=== PATIENT | female | born 1990 | race Caucasian/White ===

== ENCOUNTER 2018-12-31 23:40 | Outpatient (CLI) | payer BC ==
[2019-01-01 03:24] VITALS: BP 143/71; PULSE 113; RESP 18; TEMP 98.2
--- NOTE | 2019-01-01 07:45 | P.MSEPDOC ---
Presenting Problems - Arrival Data Date of Arrival on Unit: 12/31/18 Time of Arrival on Unit: 23:31 Mode of Transport: Ambulatory - Complaint OB-Reason for Admission/Chief Complaint: Rule Out SROM Comment: Clear fluid around 2129 Medical History - Information : 1 Para: 0 Term: 0 : 0 Abortions: Spontaneous or Elective: 0 Number of Living Children: 0 - Gestational Age Gestational Age by ANTONINO (wks/days): 34 Weeks and 1 Days Review of Systems - Review of Systems Constitutional: No problems Breast: No problems ENT: No problems Cardiovascular: No problems Respiratory: No problems Gastrointestinal: No problems Genitourinary: No problems Musculoskeletal: No problems Neurological: No problems Skin: No problems Vital Signs - Temperature Temperature: 98.2 F Temperature Source: Tympanic - Pulse Right Brachial Pulse Rate: 113 Pulse Assessment Method: Automatic Cuff - Respirations Respiratory Rate: 18 Oxygen Delivery Method: Room Air O2 Sat by Pulse Oximetry: 98 - Blood Pressure Right Arm Blood Pressure: 143/71 Blood Pressure Mean: 95 Blood Pressure Source: Automatic Cuff Medical Screen Scoring (Pre) - Cervical Exam Dilation: 0 cm = 0 Effacement: Exam Deferred Membranes: Intact - Uterine Contractions Frequency: > 5 minutes apart = 1 Duration: N/A Intensity: N/A - Maternal Vital Signs Maternal Temperature: N/A Signs of Preeclampsia: N/A Maternal Respirations: N/A - Maternal Trauma Maternal Trauma: N/A - Assessment - Baby A Baseline FHR: 135 Heart Rate - NICHD Category: Category I (Normal) = 0 NST: Reactive Position: N/A Station: N/A - Total Score - Baby A Total Score - Baby A: 1 - Total Score - Baby B Total Score - Baby B: 1 - Total Score - Baby C Total Score - Baby C: 1 - Level of Risk - Baby A Level of Risk - Baby A: Low (0-5) - Level of Risk - Baby B Level of Risk - Baby B: Low (0-5) - Level of Risk - Baby C Level of Risk - Baby C: Low (0-5) Physician Notification (Pre) - Physician Notified Physician Notified Date: 01/01/19 Physician Notified Time: 00:18 Spoke With: Theresa New Order Received: Yes - Notification Comment Comment: Amnisure negative, d.c pt home follow up as planned Disposition - Disposition OB Disposition: Discharge to home, Written follow up instructions reviewed Discharge Date: 01/01/19 Discharge Time: 00:30 I agree with the RN Medical Screening Exam: Yes Risk & Benefit of care provided described in d/c instruction: Yes Diagnosis: FALSE LABOR AT OR AFTER 37 COMPLETED WEEKS OF GESTATION
== END 2019-01-01 00:31 | disposition home or self-care (01) ==
LOC: FBPOP 23:40
PROVIDERS: ATTEND Obstetrics & Gynecology
DX: O47.1 False labor at or after 37 completed weeks of gestation (principal); Z3A.34 34 weeks gestation of pregnancy
CPT/HCPCS: 59025; 84112; 99213

== ENCOUNTER 2019-01-27 11:50 | Outpatient (CLI) | payer BC ==
[2019-01-27 12:33] LABS: Appearance,Urine Clear (Clear); Bacteria,Urine Many /hpf; Bilirubin,Urine Negative (Negative); Blood,Urine Small (Negative); Color,Urine Colorless; Glucose,Urine (UA) Negative (Negative); Ketones,Urine Negative (Negative); Leukocyte Esterase,Urine Trace (Negative); Nitrite,Urine Negative (Negative); Protein,Urine Negative (Negative); RBC,Urine 2 /hpf (0-5); Specific Gravity,Urine 1.003 (1.001-1.035); Squamous Epithelial Cell,Urine 3 /hpf (0-4); Urobilinogen,Urine <2.0 mg/dL (<2.0); WBC,Urine 8 /hpf (0-5)
[2019-01-27 12:43] LABS: Creatinine,Urine Random 28.7 mg/dL
[2019-01-27 13:03] LABS: Basophils % (A) 0 %; Eosinophils # (A) 0.1 k/uL (0-0.7); Eosinophils % (A) 1 %; HCT 30.8 % (34.0-46.0); HGB 10.1 gm/dL (11.4-16.0); Lymphocytes % (A) 22 %; MCH 28.1 pg (25.0-35.0); MCHC 32.8 g/dL (31.0-37.0); MCV 85.8 fL (80.0-100.0); Mean Platelet Volume 7.7; Monocytes # (A) 0.3 k/uL (0-1.0); Monocytes % (A) 3 %; Neutrophils # (A) 6.8 k/uL (1.3-7.7); Neutrophils % (A) 72 %; Platelet Count 240 k/uL (150-450); RBC 3.59 m/uL (3.80-5.40); RDW 13.3 % (11.5-15.5); WBC 9.4 k/uL (3.8-10.6)
[2019-01-27 13:16] LABS: ALT 15 U/L (9-52); AST 16 U/L (14-36); African American GFR (CKD) >90 (>60 ml/min/1.73 sqM); Blood Urea Nitrogen 6 mg/dL (7-17); LDH 356 U/L (313-618); Uric Acid 5.8 mg/dL (3.7-7.4)
--- NOTE | 2019-02-17 08:10 | P.MSEPDOC ---
Presenting Problems - Arrival Data Date of Arrival on Unit: 01/27/19 Time of Arrival on Unit: 11:50 Mode of Transport: Ambulatory - Complaint OB-Reason for Admission/Chief Complaint: PIH, Observation/Evaluation Comment: pt came with orders from office for PIH eval Medical History - Information : 1 Para: 0 Term: 0 : 0 Abortions: Spontaneous or Elective: 0 Number of Living Children: 0 - Gestational Age Gestational Age by ANTONINO (wks/days): 37 Weeks and 6 Days - History Complications: Breech Comment: elevated bp x1 in office Review of Systems - Review of Systems Constitutional: No problems Breast: No problems ENT: No problems Cardiovascular: No problems Respiratory: No problems Gastrointestinal: No problems Genitourinary: No problems Musculoskeletal: No problems Neurological: No problems Skin: No problems Disposition - Disposition OB Disposition: Discharge to home Discharge Date: 01/27/19 Discharge Time: 13:35 I agree with the RN Medical Screening Exam: Yes Risk & Benefit of care provided described in d/c instruction: Yes Diagnosis: GESTATIONAL HTN W/O SIGNIFICANT PROTEINURIA, THIRD TRIMESTER
== END 2019-01-27 13:35 | disposition home or self-care (01) ==
LOC: FBPOP 11:50
PROVIDERS: ATTEND Obstetrics & Gynecology
DX: O13.3 Gestational [pregnancy-induced] hypertension without significant proteinuria, third trimester (principal); Z3A.37 37 weeks gestation of pregnancy
CPT/HCPCS: 59025; 81001; 82565; 82570; 83615; 84156; 84450; 84460; 84520; 84550; 85025; 87086; 99213

== ENCOUNTER 2019-02-05 09:57 | Inpatient (IN) | payer BC ==
--- NOTE | 2019-02-05 08:08 | P.HPOB ---
History of Present Illness H&P Date: 02/05/19 Chief Complaint: Breech 28 year old presents for primary low transverse for breech presentation. Review of Systems All systems: negative Constitutional: Denies chills, Denies fever Eyes: denies blurred vision, denies pain Ears, nose, mouth and throat: Denies headache, Denies sore throat Cardiovascular: Denies chest pain, Denies shortness of breath Respiratory: Denies cough Gastrointestinal: Denies abdominal pain, Denies diarrhea, Denies nausea, Denies vomiting Genitourinary: Denies dysuria, Denies hematuria Musculoskeletal: Denies myalgias Integumentary: Denies pruritus, Denies rash Neurological: Denies numbness, Denies weakness Psychiatric: Denies anxiety, Denies depression Endocrine: Denies fatigue, Denies weight change Past Medical History Additional Past Medical History / Comment(s): Obstetric history: This is her first and she has had care with me since the first trimester. A+, abs neg, Rub Imm, RPR Nr, Hep B neg. For the last few weeks we have been monitoring her swelling and her BPs. They have been up and down but labs were normal. History of Any Multi-Drug Resistant Organisms: None Reported Smoking Status: Never smoker Medications and Allergies Home Medications Medication Instructions Recorded Confirmed Type Pnv No.95/Ferrous Fum/Folic AC 1 tab PO DAILY 01/27/19 01/27/19 History [ Multivitamin Tablet] Allergies Allergy/AdvReac Type Severity Reaction Status Date / Time No Known Allergies Allergy Verified 01/27/19 12:13 Exam Osteopathic Statement: *. No significant issues noted on an osteopathic structural exam other than those noted in the History and Physical/Consult. Heart: RRR Lungs: CTAB Abdomen: soft, nontender Extremeties: neg shonna's Assessment and Plan (1) Breech presentation Status: Acute Code(s): O32.1XX0 - MATERNAL CARE FOR BREECH PRESENTATION, UNSP SNOMED Code(s): 3722580 Plan: 1. primary low transverse
[2019-02-05] MEDS ORDERED: CITRIC ACID-SODIUM CITRATE 15 ML CUP PO ONE (10:36)
[2019-02-05] MEDS: LACTATED RINGERS 1,000 ML IV SCH ×2 (11:24→11:53)
[2019-02-05 11:28] LABS: Basophils % (A) 0 %; Eosinophils # (A) 0.1 k/uL (0-0.7); Eosinophils % (A) 1 %; HCT 30.5 % (34.0-46.0); HGB 9.8 gm/dL (11.4-16.0); Lymphocytes # (A) 1.7 k/uL (1.0-4.8); Lymphocytes % (A) 22 %; MCH 27.9 pg (25.0-35.0); MCV 87.2 fL (80.0-100.0); Monocytes # (A) 0.2 k/uL (0-1.0); Monocytes % (A) 3 %; Neutrophils # (A) 5.3 k/uL (1.3-7.7); Neutrophils % (A) 71 %; Platelet Count 249 k/uL (150-450); RDW 14.2 % (11.5-15.5); WBC 7.4 k/uL (3.8-10.6)
[2019-02-05 11:49] VITALS: BMI 39.9
[2019-02-05] MEDS ORDERED: MORPHINE SULFATE (PF) 0.3 MG/0.3 ML SYR ONE (12:02)
[2019-02-05] MEDS ORDERED: KETOROLAC 30 MG/ML 1 ML VIAL ONE (12:02)
[2019-02-05] MEDS ORDERED: OXYTOCIN 10 UNIT/ML 1 ML VIAL ONE (12:02)
[2019-02-05] MEDS ORDERED: ONDANSETRON 4 MG/2 ML VIAL ONE (12:02)
[2019-02-05] MEDS ORDERED: NALBUPHINE 10 MG/ML (1 ML AMP) ONE (12:02)
[2019-02-05] MEDS ORDERED: PHENYLEPHRINE-0.9% NACL SYG 1 MG/10 ML SYRINGE ONE (12:02)
[2019-02-05] MEDS ORDERED: diphenhydrAMINE 25 MG CAP PO PRN (12:47)
[2019-02-05] MEDS ORDERED: ONDANSETRON 4 MG/2 ML VIAL IVP PRN (12:47)
[2019-02-05] MEDS ORDERED: SIMETHICONE 80 MG CHEWABLE PO PRN (12:47)
[2019-02-05] MEDS ORDERED: diphenhydrAMINE 50 MG/ML 1 ML VIAL IVP PRN ×2 (12:47)
[2019-02-05] MEDS ORDERED: LANOLIN CREAM 5 GM TUBE TOPICAL PRN (12:47)
[2019-02-05] MEDS ORDERED: HYDROcodone/APAP 7.5-325MG 1 EACH TAB PO PRN (12:47)
[2019-02-05] MEDS ORDERED: NALOXONE 0.4 MG/ML 1 ML VIAL IV PRN (12:47)
[2019-02-05] MEDS ORDERED: KETOROLAC 30 MG/ML 1 ML VIAL IVP PRN (12:47)
[2019-02-05] MEDS ORDERED: ZOLPIDEM 5 MG TAB PO PRN (12:47)
[2019-02-05] MEDS ORDERED: diphenhydrAMINE 50 MG CAP PO PRN (12:47)
--- NOTE | 2019-02-05 12:47 | P.OP ---
Date of Procedure: 02/05/19 Preoperative Diagnosis: 1. at 39 weeks 2. Breech presentation Postoperative Diagnosis: 1. at 39 weeks 2. Rubén Breech presentation Procedure(s) Performed: Primary low transverse Anesthesia: spinal Surgeon: Bev Aragon [employer] Attendant #1: Surjit Guaman Estimated Blood Loss (ml): 600 IV fluids (ml): 1,000 Urine output (ml): 350 Pathology: none sent Condition: stable Disposition: floor Operative Findings: Viable male, Apgars 9, 9, weight 8 lbs. 13 oz. normal uterus, tubes, ovaries. Description of Procedure: Patient was taken to the operating room where spinal anesthesia was found be adequate. She was prepped and draped in normal sterile fashion in dorsal supine position with a leftward tilt. Pfannenstiel skin incision was made the scalpel and carried through to the underlying layer of fascia with the scalpel. Fascia was incised in midline and carried bilaterally with the Santiago scissors. The superior aspect of the fascial incision was grasped with Long clamps elevated and the underlying rectus muscles dissected off with the Santiago's. Attention was then turned to inferior aspect of same incision which in a similar fashion was grasped tented up and the underlying rectus muscles dissected off with the Santiago's. The rectus muscles were the midline and the peritoneum was identified tented up and entered sharply with the scalpel. The incision was extended superiorly and inferiorly with good visualization of the bladder. The bladder blade was inserted and the vesicouterine peritoneum was incised the Metzenbaums then carried bilaterally and bladder flap created digitally. A low transverse incision was then made on the uterus with the scalpel. This was carried bilaterally and digital manner. 's head delivered atraumatically, nose and mouth bulb suctioned, cord clamped and cut, handed off to waiting nurses. Apgars 9,9, weight 8 lbs. 13 oz. Placenta delivered manually, intact with three-vessel cord. The uterus is exteriorized and cleared of all clots and debris. The uterine incision was closed with 0 Vicryl in a running locked fashion. Second layer of the same sutures used in imbricating fashion to obtain excellent hemostasis. Bladder flap was then reapproximated using 2-0 Vicryl in a running fashion. Both ovaries and tubes appeared normal. The uterus was placed back into the abdomen. The peritoneum was reapproximated using 2-0 Vicryl in a running fashion. The muscles were reapproximated using 2- 0 Vicryl in interrupted fashion. The fascia was reapproximated using 0 Vicryl in a running fashion. The subcutaneous tissues closed with 3-0 Vicryl running fashion. The skin was closed toni. Patient tolerated the procedure well, sponge and instrument counts were correct times 2 and she was taken to the recovery room in stable condition.
[2019-02-05] MEDS ORDERED: OXYTOCIN 20 UNITS/1000 ML NS 1,000 ML IV SCH (13:00)
[2019-02-05] MEDS ORDERED: LACTATED RINGERS 1,000 ML IV SCH (13:00)
[2019-02-05] MEDS: METOCLOPRAMIDE 5 MG/ML 2 ML VIAL IVP PRN ×2 (13:55→19:53)
[2019-02-05] MEDS: SENNOSIDES-DOCUSATE SODIUM 1 EACH TAB PO SCH (20:25)
[2019-02-06] MEDS: LACTATED RINGERS 1,000 ML IV SCH (04:00)
[2019-02-06 08:06] LABS: Basophils % (A) 0 %; Eosinophils # (A) 0.1 k/uL (0-0.7); Eosinophils % (A) 1 %; HCT 28.1 % (34.0-46.0); HGB 8.9 gm/dL (11.4-16.0); Lymphocytes # (A) 1.4 k/uL (1.0-4.8); Lymphocytes % (A) 14 %; MCH 27.3 pg (25.0-35.0); MCHC 31.6 g/dL (31.0-37.0); MCV 86.3 fL (80.0-100.0); Mean Platelet Volume 7.9; Monocytes # (A) 0.4 k/uL (0-1.0); Monocytes % (A) 3 %; Neutrophils # (A) 8.1 k/uL (1.3-7.7); Neutrophils % (A) 80 %; Platelet Count 255 k/uL (150-450); RBC 3.25 m/uL (3.80-5.40); RDW 14.2 % (11.5-15.5); WBC 10.2 k/uL (3.8-10.6)
--- NOTE | 2019-02-06 09:01 | P.PNOBGPC ---
Subjective - Subjective Principal diagnosis: Postop day 1 Interval history: Overall corneas doing very well. She is ambulating and voiding, and she is tolerating a diet. Vital signs are stable and afebrile. Patient reports: Reports appetite normal, Reports voiding normally, Reports pain well controlled, Reports ambulating normally : doing well Objective - Vital Signs Latest vital signs: Vital Signs Temp Pulse Resp BP Pulse Ox 02/06/19 04:00 99.0 F 98 16 115/65 97 02/06/19 00:00 98.9 F 103 H 16 114/57 96 02/05/19 20:00 98.8 F 81 16 123/72 96 02/05/19 14:58 96.4 F L 94 16 125/64 98 02/05/19 14:28 88 16 113/58 97 02/05/19 13:58 90 16 109/67 97 02/05/19 13:43 95 18 103/62 98 02/05/19 13:28 84 16 103/54 99 02/05/19 13:13 94 16 113/56 98 02/05/19 12:58 97.3 F L 98 16 107/53 99 02/05/19 11:43 97.3 F L 99 16 125/79 Intake and Output 02/05/19 02/06/19 02/06/19 22:59 06:59 14:59 Output Total 2300 300 Balance -2300 -300 Output: Urine 2300 300 Uretheral (Gallegos) 1000 Other: # Voids 1 - Exam Lungs: bilateral: normal Chest: Normal S1, Normal S2 Extremities: Present: normal Abdomen: Present: normal appearance, soft. Absent: distention, tenderness Incision: Present: normal, dry, intact Uterus: Present: normal, firm - Labs Labs: Abnormal Lab Results - Last 24 Hours (Table) 02/05/19 02/06/19 Range/Units 10:52 07:17 RBC 3.50 L 3.25 L (3.80-5.40) m/uL Hgb 9.8 L 8.9 L (11.4-16.0) gm/dL Hct 30.5 L 28.1 L (34.0-46.0) % Neutrophils # 8.1 H (1.3-7.7) k/uL
[2019-02-06] MEDS: SENNOSIDES-DOCUSATE SODIUM 1 EACH TAB PO SCH ×2 (09:51→22:46)
[2019-02-06] MEDS: IBUPROFEN 600 MG TAB PO PRN (12:56)
--- NOTE | 2019-02-06 15:18 | P.PN ---
Progress Note - Text Progress Note Date: 02/06/19 Postoperative day 1 status post section under spinal anesthesia, and i ntrathecal morphine given for postoperative analgesia, patient doing well, there is no anesthesia related complications, Patient had no headache, vital signs stable , Assessment and plan= postop day 1 status post , doing well there is no anesthesia related complication.
[2019-02-06] MEDS: ACETAMINOPHEN TAB 325 MG TAB PO PRN (17:50)
[2019-02-07] MEDS: IBUPROFEN 600 MG TAB PO PRN ×4 (00:23→21:56)
[2019-02-07] MEDS: SENNOSIDES-DOCUSATE SODIUM 1 EACH TAB PO SCH ×2 (08:21→20:17)
[2019-02-07] MEDS ORDERED: DIPH,PERTUS(ACELL)TETVAC-LF 0.5 ML VIAL IM ONE (11:35)
--- NOTE | 2019-02-07 11:37 | P.DS ---
Providers Date of admission: 02/05/19 09:57 Expected date of discharge: 02/07/19 Attending physician: Bev Aragon Primary care physician: Stated None Hospital Course: Corneas doing very well post op day 2. She is involuting, voiding and tolerating her diet. She voices no complaints. Vital signs are stable and afebrile. Heart regular, lungs clear, extremities without pain. Abdomen soft uterus is firm and her incision is clean dry and intact. We'll plan to remove toni prior to her discharge assuming she is able to go home. Baby is somewhat jaundiced and there evaluating that further. A TDap has also been ordered. She will follow up with Dr. Aragon in 1 week. Discharge instructions were thoroughly reviewed and all questions were answered for her prior to discharge. She requests only Motrin has a pain reliever. Assessment postop day 2. Plan discharged home follow up with Dr. Aragon in 1 week. Patient Condition at Discharge: Good Plan - Discharge Summary Discharge Rx Participant: Yes New Discharge Prescriptions: No Action Pnv No.95/Ferrous Fum/Folic AC [ Multivitamin Tablet] 1 tab PO DAILY Discharge Medication List Pnv No.95/Ferrous Fum/Folic AC [ Multivitamin Tablet] 1 tab PO DAILY 01/27/19 [History]
[2019-02-08] MEDS: ACETAMINOPHEN TAB 325 MG TAB PO PRN (01:34)
[2019-02-08] MEDS: IBUPROFEN 600 MG TAB PO PRN ×2 (04:22→13:36)
[2019-02-08] MEDS: SENNOSIDES-DOCUSATE SODIUM 1 EACH TAB PO SCH (08:00)
[2019-02-08 15:17] VITALS: BP 131/81; PULSE 98; RESP 18; TEMP 98.4
== END 2019-02-08 17:39 | disposition home or self-care (01) | DRG 788 ==
LOC: 4FBP 09:57
PROVIDERS: ADMIT Obstetrics & Gynecology; ATTEND Obstetrics & Gynecology
PROC: 10D00Z1 Extraction of Products of Conception, Low, Open Approach (ICD-10-PCS; principal; 2019-02-05 12:21)
DX: O32.1XX0 Maternal care for breech presentation, not applicable or unspecified (principal); Z37.0 Single live birth; Z3A.39 39 weeks gestation of pregnancy
CPT/HCPCS: 85025; 86850; 86900; 86901; 90715

== ENCOUNTER 2021-04-21 13:42 | Outpatient (CLI) | payer BC ==
[2021-04-21] MEDS ORDERED: LACTATED RINGERS 1,000 ML IV SCH (14:15)
[2021-04-21 15:50] VITALS: BP 125/71; PULSE 131; RESP 18; TEMP 96.4
--- NOTE | 2021-04-24 07:27 | P.MSEPDOC ---
Presenting Problems - Arrival Data Date of Arrival on Unit: 04/21/21 Time of Arrival on Unit: 13:42 Mode of Transport: Wheelchair - Complaint OB-Reason for Admission/Chief Complaint: Possible Onset of Labor Comment: pt presents to triage for contractions Medical History - Information : 2 Para: 1 Term: 1 : 0 Abortions: Spontaneous or Elective: 0 Number of Living Children: 1 - Gestational Age Gestational Age by ANTONINO (wks/days): 37 Weeks and 0 Days - History Complications: Prior Review of Systems - Review of Systems Constitutional: No problems Breast: No problems ENT: No problems Cardiovascular: No problems Respiratory: No problems Gastrointestinal: No problems Genitourinary: No problems Musculoskeletal: No problems Neurological: No problems Skin: No problems Vital Signs - Temperature Temperature: 96.4 F Temperature Source: Temporal Artery Scan - Pulse Right Brachial Pulse Rate: 131 Pulse Assessment Method: Automatic Cuff - Respirations Respiratory Rate: 18 Oxygen Delivery Method: Room Air O2 Sat by Pulse Oximetry: 97 - Blood Pressure Right Arm Blood Pressure: 125/71 Blood Pressure Mean: 89 Blood Pressure Source: Automatic Cuff Medical Screen Scoring - Cervical Exam Dilation (cm): 0 - Assessment - Baby A Baseline FHR: 140 Heart Rate - NICHD Category: Category I (Normal) NST: Reactive Physician Notification - Physician Notified Physician Notified Date: 04/21/21 Physician Notified Time: 14:07 Physician: Bev Aragon - Notification Comment Comment: pt given 1 liter of fluids, no cervical change, reactive nst, has appt on Friday with Dr. Flores, discharged home Maternal Triage Index - Maternal Triage Index Presenting for scheduled procedure w/no complaint: No - Stat/Priority 1 Stat Priority 1: No - Urgent/Priority 2 Urgent Priority 2: No - Prompt/Priority 3 Prompt Priority 3: Yes Criteria Met for Priority 3: pt presents with contractions at 37 weeks ga, previous section Disposition - Disposition OB Disposition: Triage, Discharge to home, Written follow up instructions lyssa salazar Discharge Date: 04/21/21 Discharge Time: 15:45 I agree with the RN Medical Screening Exam: Yes Case reviewed; plan agreed upon as documented in EMR&OBIX.: Yes Diagnosis: FALSE LABOR BEFORE 37 COMPLETED WEEKS OF GEST, THIRD TRI
== END 2021-04-21 15:45 | disposition home or self-care (01) ==
LOC: FBPOP 13:42
PROVIDERS: ATTEND Obstetrics & Gynecology
DX: O47.1 False labor at or after 37 completed weeks of gestation (principal); Z3A.37 37 weeks gestation of pregnancy
CPT/HCPCS: 59025; 96360; 99214

== ENCOUNTER 2021-04-21 18:40 | Inpatient (IN) | payer BC ==
[2021-04-21] MEDS ORDERED: CITRIC ACID-SODIUM CITRATE 15 ML CUP PO ONE (19:09)
[2021-04-21] MEDS ORDERED: LACTATED RINGERS 1,000 ML IV ONE (19:09)
[2021-04-21 19:36] LABS: Basophils % (A) 0 %; Eosinophils # (A) 0.1 k/uL (0-0.7); Eosinophils % (A) 1 %; HCT 31.4 % (34.0-46.0); HGB 10.4 gm/dL (11.4-16.0); Lymphocytes # (A) 2.8 k/uL (1.0-4.8); Lymphocytes % (A) 25 %; MCH 28.5 pg (25.0-35.0); MCHC 33.1 g/dL (31.0-37.0); MCV 86.2 fL (80.0-100.0); Mean Platelet Volume 8.8; Monocytes # (A) 0.4 k/uL (0-1.0); Monocytes % (A) 3 %; Neutrophils # (A) 7.4 k/uL (1.3-7.7); Neutrophils % (A) 68 %; Platelet Count 219 k/uL (150-450); RBC 3.64 m/uL (3.80-5.40); RDW 12.9 % (11.5-15.5); WBC 10.9 k/uL (3.8-10.6)
[2021-04-21] MEDS ORDERED: ONDANSETRON 4 MG/2 ML VIAL ONE (19:47)
[2021-04-21] MEDS ORDERED: ceFAZolin 1,000 MG VIAL ONE (19:47)
[2021-04-21] MEDS ORDERED: ePHEDrine 50 MG/ML 1 ML AMP ONE (19:47)
[2021-04-21] MEDS ORDERED: OXYTOCIN 10 UNIT/ML 1 ML VIAL ONE (19:47)
[2021-04-21] MEDS ORDERED: OXYTOCIN 30 UNITS/500 ML NS BAG IV ONE (19:47)
[2021-04-21] MEDS ORDERED: MORPHINE SULFATE (PF) 0.3 MG/0.3 ML SYR ONE (19:47)
[2021-04-21] MEDS ORDERED: NALBUPHINE 10 MG/ML (1 ML AMP) ONE (19:47)
[2021-04-21] MEDS ORDERED: PHENYLEPHRINE-0.9% NACL SYG 1,000 MCG/10 ML SYRINGE ONE (19:47)
[2021-04-21] MEDS ORDERED: KETOROLAC 15 MG/ML 1 ML VIAL ONE (19:47)
[2021-04-21] MEDS: LACTATED RINGERS 1,000 ML IV SCH (20:30)
[2021-04-21] MEDS ORDERED: SIMETHICONE 80 MG CHEWABLE PO PRN (20:40)
[2021-04-21] MEDS ORDERED: diphenhydrAMINE 25 MG CAP PO PRN (20:40)
[2021-04-21] MEDS ORDERED: diphenhydrAMINE 50 MG CAP PO PRN (20:40)
[2021-04-21] MEDS ORDERED: METOCLOPRAMIDE 5 MG/ML 2 ML VIAL IVP PRN (20:40)
[2021-04-21] MEDS ORDERED: ONDANSETRON 4 MG/2 ML VIAL IVP PRN (20:40)
[2021-04-21] MEDS ORDERED: diphenhydrAMINE 50 MG/ML 1 ML VIAL IVP PRN ×2 (20:40)
[2021-04-21] MEDS ORDERED: ZOLPIDEM 5 MG TAB PO PRN (20:40)
[2021-04-21] MEDS ORDERED: NALOXONE 0.4 MG/ML 1 ML VIAL IV PRN (20:40)
[2021-04-21] MEDS ORDERED: LANOLIN CREAM 5 GM TUBE TOPICAL PRN (20:40)
[2021-04-21] MEDS ORDERED: OXYTOCIN 30 UNITS/500 ML NS 30 UNIT in SALINE 1 500ML.BAG IV SCH (20:45)
--- NOTE | 2021-04-21 20:45 | P.HPOB ---
History of Present Illness H&P Date: 04/21/21 Chief Complaint: Spontaneous rupture of membranes, labor, previous section 30-year-old presents at 37 weeks and 1 day in labor with spontaneous rupture membranes. Her cervix changed from closed to 2 centimeters dilated. Her water broke as well. Patient had had a previous section and had signed consent form to have a repeat . heart tones 140 with moderate variability and reactive. Review of Systems All systems: negative Constitutional: Denies chills, Denies fever Eyes: denies blurred vision, denies pain Ears, nose, mouth and throat: Denies headache, Denies sore throat Cardiovascular: Denies chest pain, Denies shortness of breath Respiratory: Denies cough Gastrointestinal: Denies abdominal pain, Denies diarrhea, Denies nausea, Denies vomiting Genitourinary: Denies dysuria, Denies hematuria Musculoskeletal: Denies myalgias Integumentary: Denies pruritus, Denies rash Neurological: Denies numbness, Denies weakness Psychiatric: Denies anxiety, Denies depression Endocrine: Denies fatigue, Denies weight change Past Medical History Past Medical History: Hearing Disorder / Deafness Additional Past Medical History / Comment(s): Obstetric history: First was a primary . This is her second and she has had care with me since the first trimester. A+, abs neg, Rub Imm, RPR Nr, Hep B neg. History of Any Multi-Drug Resistant Organisms: None Reported Additional Past Surgical History / Comment(s): Oral surgery. Past Anesthesia/Blood Transfusion Reactions: No Reported Reaction Smoking Status: Unknown if ever smoked Medications and Allergies Home Medications Medication Instructions Recorded Confirmed Type Pnv No.95/Ferrous Fum/Folic AC 1 tab PO DAILY 01/27/19 04/21/21 History [ Multivitamin Tablet] Allergies Allergy/AdvReac Type Severity Reaction Status Date / Time No Known Allergies Allergy Verified 04/21/21 18:47 Exam Osteopathic Statement: *. No significant issues noted on an osteopathic structural exam other than those noted in the History and Physical/Consult. Vital Signs Temp Pulse Resp BP Pulse Ox 04/21/21 19:05 98.2 F 122 H 18 111/63 98 Intake and Output 04/21/21 04/21/21 04/21/21 06:59 14:59 22:59 Other: Weight 115.666 kg Heart: Regular rate and rhythm Lungs: Clear to auscultation bilaterally Abdomen: Soft, nontender Extremities: Negative Homans sign Results Result Diagrams: 04/21/21 19:25 Abnormal Lab Results - Last 24 Hours (Table) 04/21/21 Range/Units 19:25 WBC 10.9 H (3.8-10.6) k/uL RBC 3.64 L (3.80-5.40) m/uL Hgb 10.4 L (11.4-16.0) gm/dL Hct 31.4 L (34.0-46.0) % Assessment and Plan (1) 37 weeks gestation of Current Visit: Yes Status: Acute Code(s): Z3A.37 - 37 WEEKS GESTATION OF SNOMED Code(s): 68511506 (2) Normal labor Current Visit: Yes Status: Acute Code(s): O80 - ENCOUNTER FOR FULL-TERM UNCOMPLICATED DELIVERY; Z37.9 - OUTCOME OF DELIVERY, UNSPECIFIED SNOMED Code(s): 08473425 (3) Previous section Current Visit: Yes Status: Acute Code(s): Z98.891 - HISTORY OF UTERINE SCAR FROM PREVIOUS SURGERY SNOMED Code(s): 329470869 (4) Spontaneous rupture of amniotic membranes Current Visit: Yes Status: Acute Code(s): ZLU7283 - SNOMED Code(s): 853031379 Plan: 1. Admit to family place 2. Prep for repeat low transverse
--- NOTE | 2021-04-21 20:47 | P.OP ---
Date of Procedure: 04/21/21 Preoperative Diagnosis: 1. at 37 weeks and 1 day 2. Previous section 3. Labor 4. Spontaneous rupture membranes Postoperative Diagnosis: 1. at 37 weeks and 1 day 2. Previous section 3. Labor 4. Spontaneous rupture membranes Procedure(s) Performed: Repeat low transverse Anesthesia: spinal Surgeon: Bev Aragon [employer] Form #1: Baron Fernandez Estimated Blood Loss (ml): 588 IV fluids (ml): 1,000 Urine output (ml): 200 Pathology: none sent Condition: stable Disposition: floor Operative Findings: Viable female Apgars 9, 9, weight 9 lbs. 2 oz. Description of Procedure: Patient was taken to the operating room where spinal anesthesia was found be adequate. She was prepped and draped in normal sterile fashion in dorsal supine position with a leftward tilt. Pfannenstiel skin incision was made the scalpel and carried through to the underlying layer of fascia with the scalpel. Fascia was incised in midline and carried bilaterally with the Santiago scissors. The superior aspect of the fascial incision was grasped with Long clamps elevated and the underlying rectus muscles dissected off with the Santiago's. Attention was then turned to inferior aspect of same incision which in a similar fashion was grasped tented up and the underlying rectus muscles dissected off with the Santiago's. The rectus muscles were the midline and the peritoneum was identified tented up and entered sharply with the scalpel. The incision was extended superiorly and inferiorly with good visualization of the bladder. The bladder blade was inserted and the vesicouterine peritoneum was incised the Metzenbaums then carried bilaterally and bladder flap created digitally. A low transverse incision was then made on the uterus with the scalpel. This was carried bilaterally and digital manner. Infant's head delivered atraumatically, nose and mouth bulb suctioned, cord clamped and cut, handed off to waiting nurses. Apgars 9,9, weight 9 lbs. 2 oz. Placenta delivered manually, intact with three-vessel cord. The uterus is exteriorized and cleared of all clots and debris. The uterine incision was closed with 0 Vicryl in a running locked fashion. Second layer of the same sutures used in imbricating fashion to obtain excellent hemostasis. Both ovaries and tubes appeared normal. The uterus was placed back into the abdomen. The peritoneum was reapproximated using 2-0 Vicryl in a running fashion. The fascia was reapproximated using 0 Vicryl in a running fashion. The subcutaneous tissues closed with 3-0 Vicryl running fashion. The skin was closed toni. Patient tolerated the procedure well, sponge and instrument counts were correct times 2 and she was taken to the recovery room in stable condition.
[2021-04-22] MEDS: LACTATED RINGERS 1,000 ML IV SCH (00:47)
[2021-04-22] MEDS: ACETAMINOPHEN TAB 500 MG TAB PO SCH ×5 (02:30→23:28)
[2021-04-22] MEDS: KETOROLAC 30 MG/ML 1 ML VIAL IVP SCH ×3 (06:05→19:19)
--- NOTE | 2021-04-22 07:32 | P.PN ---
Progress Note - Text Progress Note Date: 04/22/21 Patient seen and examined at bedside POD 1 s/p repeat with spinal duramorph. Patient reports pain well controlled with duramorph and oral medication. Itching from the morphine is tolerable. Patient able to ambulate without difficulty and has used the restroom. No signs of motor weakness. Patient denies OSEGUERA, N/V, F/C. Site of spinal is clean and dry without erythema. Will continue to follow.
[2021-04-22 07:40] LABS: Basophils % (A) 0 %; Eosinophils # (A) 0.1 k/uL (0-0.7); Eosinophils % (A) 1 %; HCT 28.2 % (34.0-46.0); HGB 9.3 gm/dL (11.4-16.0); Lymphocytes # (A) 1.9 k/uL (1.0-4.8); Lymphocytes % (A) 19 %; MCH 28.8 pg (25.0-35.0); MCHC 32.9 g/dL (31.0-37.0); MCV 87.6 fL (80.0-100.0); Mean Platelet Volume 9.4; Monocytes # (A) 0.4 k/uL (0-1.0); Monocytes % (A) 5 %; Neutrophils # (A) 7.3 k/uL (1.3-7.7); Neutrophils % (A) 74 %; Platelet Count 181 k/uL (150-450); RBC 3.22 m/uL (3.80-5.40); WBC 9.9 k/uL (3.8-10.6)
[2021-04-22] MEDS: SENNOSIDES-DOCUSATE SODIUM 1 EACH TAB PO SCH ×3 (09:06→23:32)
--- NOTE | 2021-04-22 09:59 | P.PNOBGPC ---
Subjective - Subjective Principal diagnosis: S/P RLTCS POD #1 Interval history: Patient seen and examined. Denies nausea, vomiting, chest pain, shortness of breath or any calf pain. Patient reports: Reports appetite normal, Reports voiding normally, Reports pain well controlled, Reports ambulating normally : doing well Objective - Vital Signs Latest vital signs: Vital Signs Temp Pulse Resp BP Pulse Ox 04/22/21 08:00 97.8 F 86 16 97/64 04/22/21 03:26 98.3 F 96 16 105/70 96 04/22/21 00:45 98.0 F 88 16 105/66 96 04/21/21 22:45 97.1 F L 86 16 114/58 96 04/21/21 22:15 88 114/57 04/21/21 21:45 94 116/61 04/21/21 21:30 88 114/57 04/21/21 21:15 99 113/58 04/21/21 21:00 94 113/58 04/21/21 20:45 97.5 F L 88 18 104/53 100 04/21/21 19:05 98.2 F 122 H 18 111/63 98 Intake and Output 04/21/21 04/22/21 04/22/21 22:59 06:59 14:59 Output Total 688 175 Balance -688 -175 Output: Urine 100 175 Estimated Blood Loss 588 Other: Weight 115.666 kg - Exam Lungs: bilateral: normal Chest: Normal S1, Normal S2 Extremities: Present: normal Abdomen: Present: normal appearance, soft. Absent: distention, tenderness Incision: Present: normal, dry, intact Uterus: Present: normal, firm - Labs Labs: Abnormal Lab Results - Last 24 Hours (Table) 04/21/21 04/22/21 Range/Units 19:25 07:17 WBC 10.9 H (3.8-10.6) k/uL RBC 3.64 L 3.22 L (3.80-5.40) m/uL Hgb 10.4 L 9.3 L (11.4-16.0) gm/dL Hct 31.4 L 28.2 L (34.0-46.0) % Assessment and Plan (1) 37 weeks gestation of Current Visit: Yes Status: Resolved Code(s): Z3A.37 - 37 WEEKS GESTATION OF SNOMED Code(s): 15019426 (2) Normal labor Current Visit: Yes Status: Resolved Code(s): O80 - ENCOUNTER FOR FULL-TERM UNCOMPLICATED DELIVERY; Z37.9 - OUTCOME OF DELIVERY, UNSPECIFIED SNOMED Code(s): 25011880 (3) Previous section Current Visit: Yes Status: Resolved Code(s): Z98.891 - HISTORY OF UTERINE SCAR FROM PREVIOUS SURGERY SNOMED Code(s): 018547598 (4) Spontaneous rupture of amniotic membranes Current Visit: Yes Status: Resolved Code(s): IQZ9776 - SNOMED Code(s): 434390083 (5) Status post repeat low transverse section Current Visit: Yes Status: Acute Code(s): Z98.891 - HISTORY OF UTERINE SCAR FROM PREVIOUS SURGERY SNOMED Code(s): 190174866 Plan: 1. Increase ambulation 2. Regular diet
[2021-04-22] MEDS: IBUPROFEN 600 MG TAB PO SCH (19:50)
[2021-04-23] MEDS: IBUPROFEN 600 MG TAB PO SCH ×3 (05:13→13:32)
[2021-04-23] MEDS: ACETAMINOPHEN TAB 500 MG TAB PO SCH ×3 (05:14→18:15)
--- NOTE | 2021-04-23 07:10 | P.DS ---
Providers Date of admission: 04/21/21 19:51 Expected date of discharge: 04/23/21 Attending physician: Bev Aragon Primary care physician: Stated None - Discharge Diagnosis(es) (1) 37 weeks gestation of Current Visit: Yes Status: Resolved (2) Normal labor Current Visit: Yes Status: Resolved (3) Previous section Current Visit: Yes Status: Resolved (4) Spontaneous rupture of amniotic membranes Current Visit: Yes Status: Resolved (5) Status post repeat low transverse section Current Visit: Yes Status: Acute Hospital Course: Patient presented in active labor. She underwent a repeat low transverse C- section. Postoperatively her course was uncomplicated. She is ambulating and voiding without difficulty. Her pain is well-controlled. Tolerating regular diet and passing flatus. Denies nausea, vomiting, chest pain, shortness of breath or any calf pain. Her incision is clean, dry, intact. Patient will be discharged home postoperative day #2 in stable condition to follow-up with me in one week. Plan - Discharge Summary New Discharge Prescriptions: New Ibuprofen [Motrin] 600 mg PO Q6H #30 tab oxyCODONE HCL [OxyIR] 5 mg PO Q4HR PRN #18 tab PRN Reason: Pain Scale 4 - 6 No Action Pnv No.95/Ferrous Fum/Folic AC [ Multivitamin Tablet] 1 tab PO DAILY Discharge Medication List Pnv No.95/Ferrous Fum/Folic AC [ Multivitamin Tablet] 1 tab PO DAILY 01/27/19 [History] Ibuprofen [Motrin] 600 mg PO Q6H #30 tab 04/23/21 [Rx] oxyCODONE HCL [OxyIR] 5 mg PO Q4HR PRN #18 tab 04/23/21 [Rx] Follow up Appointment(s)/Referral(s): Bev Aragon DO [Doctor of Osteopathic Medicine] - 1 Week Discharge Disposition: HOME SELF-CARE
[2021-04-23] MEDS: SENNOSIDES-DOCUSATE SODIUM 1 EACH TAB PO SCH (08:15)
[2021-04-23 16:54] VITALS: BP 138/80; PULSE 89; RESP 20; TEMP 98.3
== END 2021-04-23 18:15 | disposition home or self-care (01) | DRG 788 ==
LOC: FBPOP 18:40 → 4FBP 19:51
PROVIDERS: ADMIT Obstetrics & Gynecology; ATTEND Obstetrics & Gynecology
PROC: 10D00Z1 Extraction of Products of Conception, Low, Open Approach (ICD-10-PCS; principal; 2021-04-21 19:50)
DX: O34.211 Maternal care for low transverse scar from previous cesarean delivery (principal); O99.892 Other specified diseases and conditions complicating childbirth; H91.90 Unspecified hearing loss, unspecified ear; Z37.0 Single live birth; Z3A.37 37 weeks gestation of pregnancy
CPT/HCPCS: 59025; 84112; 85025; 86850; 86900; 86901; 99213

== ENCOUNTER → 2023-01-07 | Outpatient (CLI) | payer BC ==
[2023-01-07 14:11] LABS: INR 0.9 (<1.2); Partial Thromboplastin Time 22.7 sec (22.0-30.0)
[2023-01-07 20:39] LABS: HCT 40.4 % (37.2-46.3); HGB 12.7 d/dL (12.0-15.0); MCH 27.9 pg (27.0-32.0); MCHC 31.4 d/dL (32.0-37.0); MCV 88.8 FL (80.0-97.0); NRBC Per 100 WBC 0 X 10*3/uL (0.00-0.01); Platelet Count 330 X 10*3/uL (140-440); RBC 4.55 X 10*6/uL (4.10-5.20); RDW 13.6 % (11.5-14.5); WBC 10.17 X 10*3/uL (4.50-10.00)
[2023-01-07 20:43] LABS: ALT 52 U/L (8-44); AST 42 U/L (13-35); Albumin 4.9 d/dL (3.8-4.9); Albumin/Globulin Ratio 1.58 Ratio (1.60-3.17); Alkaline Phosphatase 93 U/L (41-126); Blood Urea Nitrogen 14.8 mg/dL (9.0-27.0); Calcium 10.2 mg/dL (8.7-10.3); Carbon Dioxide 25.4 mmol/L (21.6-31.8); Chloride 99 mmol/L (96-109); Globulin 3.1 d/dL (1.6-3.3); Glucose 86 mg/dL (70-110); Potassium 4.9 mmol/L (3.5-5.5); Sodium 137 mmol/L (135-145); Total Bilirubin 0.2 mg/dL (0.3-1.2)
== END | disposition home or self-care (01) ==
LOC: LABWHC1 12:25
PROVIDERS: ATTEND Orthopaedic Surgery Orthopaedic Surgery of the Spine
DX: M48.062 Spinal stenosis, lumbar region with neurogenic claudication (principal); M51.16 Intervertebral disc disorders with radiculopathy, lumbar region; R53.1 Weakness; R29.2 Abnormal reflex
CPT/HCPCS: 36415; 80053; 85027; 85610; 85730